=== PATIENT | male | born 1945 | race Caucasian/White ===

== ENCOUNTER 2017-03-17 09:39 | Emergency (ER) | payer MEDICARE, BC ==
[~2017-03-17] VITALS: Ht 175.3 cm; Wt 81.8 kg
[~2017-03-17 09:39] MED LIST: ASPIR-LOW81 MG PO; ASPIR-LOX325 MG PO; HCTZ; NORCO 325 MG-51 TAB PO
[2017-03-17 09:46] VITALS: TEMP 97.8
[2017-03-17] MEDS ORDERED: PRINIVIL10 MG PO (09:48)
[2017-03-17 12:36] VITALS: BP 115/94; PULSE 65
== END 2017-03-17 12:46 | disposition home or self-care (01) ==
LOC: COL.ER 09:39
DX: S62.521B Displaced fracture of distal phalanx of right thumb, initial encounter for open fracture (principal); S67.01XA Crushing injury of right thumb, initial encounter; W30.89XA Contact with other specified agricultural machinery, initial encounter; Y92.73 Farm field as the place of occurrence of the external cause; Z23 Encounter for immunization; I10 Essential (primary) hypertension
CPT/HCPCS: J0690; J1170; J2405; J7030

== ENCOUNTER 2018-07-13 09:30 | Emergency (ER) | payer MEDICARE, BC ==
[~2018-07-13] VITALS: Ht 175.3 cm; Wt 81.8 kg
[~2018-07-13 09:30] MED LIST changes: +PRINIVIL10 MG PO
[2018-07-13] MEDS ORDERED: CEPHALEXIN500 M1 PO (11:20)
[2018-07-13 11:30] VITALS: BP 177/107; PULSE 56; TEMP 96.8
== END 2018-07-13 11:38 | disposition home or self-care (01) ==
LOC: COL.ER 09:30
DX: S61.313A Laceration without foreign body of left middle finger with damage to nail, initial encounter (principal); W23.0XXA Caught, crushed, jammed, or pinched between moving objects, initial encounter

== ENCOUNTER → 2020-11-07 | Outpatient (CLI) | payer MEDICARE, BC ==
[~2020-11-07] MED LIST changes: +CEPHALEXIN500 M1 PO
== END ==
LOC: COL.RAD 13:00
DX: M18.12 Unilateral primary osteoarthritis of first carpometacarpal joint, left hand (principal)
CPT/HCPCS: J3301; Q9967

== ENCOUNTER 2023-12-04 08:31 | Emergency (ER) | payer MEDICARE, BC ==
[~2023-12-04] VITALS: Ht 175.3 cm; Wt 83.2 kg
[2023-12-04 08:39] VITALS: BP 130/73; PULSE 66; TEMP 97.7
[2023-12-04] MEDS ORDERED: AMOXICILLIN 8751 TAB PO (09:30)
== END 2023-12-04 09:40 | disposition home or self-care (01) ==
LOC: COL.ER 08:31
DX: M71.122 Other infective bursitis, left elbow (principal); W00.0XXA Fall on same level due to ice and snow, initial encounter